=== PATIENT | female | born 1995 | race African-American/Black ===

== ENCOUNTER 2016-12-25 09:28 | Emergency (ER) | payer OTHER ==
[~2016-12-25 09:28] MED LIST: BACTRIM DS TABL1 TA1 PO; BENZONATATE PO; IBUPROFEN PO; IBUPROFEN800 MG PO; K-DUR20 ME1 PO; LORATADINE PO; NASONEX17 GM; PHENERGAN25 MG PO; ZOFRAN ODT4 MG PO
[2016-12-25 10:19] LABS: URINE SOURCE CLEAN CATCH
[2016-12-25 10:20] LABS: BASOPHIL% 0.7 % (0-2.5); EOSINOPHIL# 0.1 X10e3 (0-0.7); EOSINOPHIL% 1.5 % (0.0-7.0); HEMATOCRIT 27.6 % (35.0-45.0); HEMOGLOBIN 8.2 gm/dL (12.0-16.0); LYMPHOCYTE# 1.8 X10e3 (1.0-3.5); LYMPHOCYTE% 28.3 % (17.0-45.0); MEAN CELL VOLUME 70.5 FL (83-96); MEAN CORPUSCULAR HGB CONC 29.8 g/dL (30-36); MEAN PLATELET VOLUME 8.1 FL (6.5-11.5); MONOCYTE# 0.4 X10e3 (0-1.0); MONOCYTE% 5.8 % (3.0-12.0); NEUTROPHIL% 63.7 % (40-75); PLATELET COUNT 273 X10e3 (140-420); RED BLOOD COUNT 3.91 X10e (3.90-5.30); RED CELL DISTRIBUTION WIDTH 17.5 % (11.0-15.5); WHITE BLOOD COUNT 6.3 X10e3 (4.0-10.5)
[2016-12-25 10:21] LABS: DIFF IND NO
[2016-12-25 10:22] LABS: URINE APPEARANCE CLEAR; URINE BILIRUBIN NEG (NEG); URINE BLOOD NEG (NEG); URINE COLOR YELLOW; URINE GLUCOSE NEG (NEG); URINE KETONE NEG (NEG); URINE LEUKOCYTE ESTERASE NEG (NEG); URINE NITRATE NEG (NEG); URINE PROTEIN NEG (NEG)
[2016-12-25 10:27] LABS: CULTURE INDICATED? NO
[2016-12-25 10:47] LABS: ALBUMIN SERUM 3.7 g/dL (3.5-5.0); BILIRUBIN, DIRECT 0.1 mg/dL (0.0-0.2); BILIRUBIN,INDIRECT 0.3 mg/dL (0.0-0.9); BILIRUBIN,TOTAL 0.4 mg/dL (0.2-2.0); BUN/CREATININE RATIO 11.66; CALCIUM SERUM 8.6 mg/dL (8.4-10.2); CREATININE SERUM 0.6 mg/dL (0.6-1.4); GLOM FILT RATE Estimated 148.9 mL/min (>60); POTASSIUM 3.6 mmol/L (3.5-5.1); PROTEIN TOTAL SERUM 6.6 g/dL (6.0-8.3)
== END 2016-12-25 13:00 | disposition home or self-care (01) ==
LOC: CED 09:28
PROVIDERS: Physician Assistant Medical
DX: O99.011 Anemia complicating pregnancy, first trimester (principal); D64.9 Anemia, unspecified
CPT/HCPCS: 36415; 80048; 80076; 81003; 82150; 83690; 84443; 84703; 85025; 96361; 96374; 99284; J1885; J2405